=== PATIENT | male | born 1970 | race Caucasian/White ===

== ENCOUNTER 2017-10-27 15:18 | Emergency (ER) | payer OTHER ==
[~2017-10-27] VITALS: Ht 175.3 cm; Wt 81.0 kg
[~2017-10-27 15:18] MED LIST: CGN1 PO; CHOL100010 PO; DPKEC500 PO; DSY100 PO; FLV400 PO; PRAV20TA PO; PROP10TA7 PO; THIO5CAP2 PO
[2017-10-27 15:25] VITALS: O2SAT 100
[2017-10-27 15:27] VITALS: TEMP 36.9; Ht 175.3 cm; Wt 81.0 kg
[2017-10-27] MEDS ORDERED: SODIUM CHLORIDE 0.9% 1000ML 1,000 ML IV STA (15:32)
[2017-10-27] MEDS ORDERED: OPTIRAY 320 IV PRN (15:45)
[2017-10-27] MEDS ORDERED: QUET1TAB34 PO (16:18)
[2017-10-27] MEDS ORDERED: FENO145T26 PO (16:18)
[2017-10-27] MEDS ORDERED: DPKEC500 PO (16:18)
[2017-10-27] MEDS ORDERED: GLC/500 PO (16:18)
[2017-10-27] MEDS ORDERED: DSY/150 PO (16:18)
[2017-10-27] MEDS ORDERED: BENZ-88 PO (16:18)
[2017-10-27] MEDS ORDERED: FLUO20CA35 PO (16:18)
[2017-10-27] MEDS ORDERED: ROSU20TA PO (16:18)
[2017-10-27 16:19] LABS: ISTAT CREATININE 0.9 mg/dl (0.6-1.3); ISTAT IONIZED CALCIUM 1.32 mmol/l (1.12-1.32); ISTAT POTASSIUM 4.2 mEq/L (3.3-5.0)
[2017-10-27 16:28] LABS: BASO % 0.2 %; BASO ABS # 0.03 K/uL (0-0.2); EOS % 0.9 %; EOS ABS # 0.12 K/uL (0-0.5); HEMATOCRIT 39.6 % (42-52); HEMOGLOBIN 13.9 g/dL (14.0-18.0); IG# 0.05 K/uL (0.00-0.02); LYMPH % 33.8 %; LYMPH ABS # 4.46 K/uL (1.2-3.4); MEAN CORPUSCULAR HEMOGLOBIN 30.5 pg (25-34); MEAN CORPUSCULAR HGB CONC 35.1 g/dl (32-36); MEAN PLATELET VOLUME 8.8 fL (7.4-10.4); MONO % 8.1 %; MONO ABS # 1.07 K/uL (0.11-0.59); NEUT % 56.6 %; NEUT ABS # 7.48 K/uL (1.4-6.5); PLATELET COUNT 358 K/uL (130-400); RED CELL DISTRIBUTION WIDTH CV 12.8 % (11.5-14.5); WHITE BLOOD COUNT 13.21 K/uL (4.8-10.8)
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
[2017-10-27 16:53] LABS: ALBUMIN 4.1 gm/dl (3.4-5.0); ALT/SGPT 46 U/L (12-78); AST/SGOT 30 U/L (15-37); BLOOD UREA NITROGEN 17 mg/dl (7-18); CALCIUM 10.1 mg/dl (8.5-10.1); CARBON DIOXIDE 25 mmol/L (21-32); CREATININE 0.95 mg/dl (0.60-1.40); GLUCOSE 140 mg/dl (70-99); SODIUM 137 mmol/L (136-145)
[2017-10-27 16:55] LABS: ALKALINE PHOSPHATASE 44 U/L (45-117); TOTAL PROTEIN 7.7 gm/dl (6.4-8.2)
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
[2017-10-27 18:56] VITALS: BP 131/74; PULSE 75; O2SAT 96
== END 2017-10-27 18:58 | disposition home or self-care (01) ==
LOC: EDBD 15:18 → C.EDA 15:19
DX: R07.89 Other chest pain (principal); V43.52XA Car driver injured in collision with other type car in traffic accident, initial encounter; Y92.488 Other paved roadways as the place of occurrence of the external cause; F10.10 Alcohol abuse, uncomplicated; F12.10 Cannabis abuse, uncomplicated; F32.9 Major depressive disorder, single episode, unspecified; E78.00 Pure hypercholesterolemia, unspecified; I10 Essential (primary) hypertension; F20.9 Schizophrenia, unspecified; F17.200 Nicotine dependence, unspecified, uncomplicated; F29 Unspecified psychosis not due to a substance or known physiological condition; Z79.84 Long term (current) use of oral hypoglycemic drugs